=== PATIENT | male | born 2000 | race Caucasian/White ===

== ENCOUNTER 2020-12-15 18:10 | Emergency (ER) | payer OTHER, SELFPAY ==
--- NOTE | ~2020-12-15 | XR_ITS ---
EXAMINATION: XR foot LT min 3V EXAM DATE: 12/15/2020 18:47 INDICATION: Lifted heavy item on 12/06/2020, heard pop MTP region pain persisting. TECHNIQUE: Left foot dorsoplantar, lateral and oblique projections obtained and reviewed. There is n o prior study for comparison. FINDINGS: Left metatarsal bones unremarkable. There are no acute fractures or dislocations identifi ed. There is no subcutaneous gas. The soft tissue is unremarkable. There are no radiopaque foreig n bodies. IMPRESSION: No acute osseous findings. Reviewed, dictated and finalized at location A. IMPRESSION: No acute osseous findings.
[2020-12-15 18:20] VITALS: BP 131/82; PULSE 79; RESP 16; TEMP 37.3; O2SAT 100
--- NOTE | 2020-12-15 19:16 | ED.LOWEXIN ---
HPI - Extremity Injury (Lower) General Chief Complaint: Extremity Injury, Lower Stated Complaint: Fell at work possible injury to left Foot Time Seen by Provider: 12/15/20 18:30 Source: patient and RN notes reviewed Mode of arrival: ambulatory Limitations: no limitations History of Present Illness HPI Narrative: Patient presents today complaining of pain to the dorsum of his left foot since December 06. 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 Patient continues to have sharp pains at the base of his toes since the initial onset of pain. He has numbness at the base of the first and second toes as well. He currently rates his pain 7/10. He has tried no [id number] interventions for pain prior to arrival. States pain is only present with weightbearing. He has been walking on the lateral portion of his foot as this helps with his pain. Related Data Home Medications Medication Instructions Recorded Confirmed No Home Medications 12/15/20 12/15/20 Allergies Allergy/AdvReac Type Severity Reaction Status Date / Time shellfish derived Allergy Unknown Verified 12/15/20 18:28 Review of Systems Review of Systems: Narrative: CONSTITUTIONAL: Denies body aches, fever, chills, or sweats. EYES: Denies visual changes, redness, or discharge. ENT: Denies rhinorrhea, congestion, sore throat, or otalgia. CARDIOVASCULAR: Denies chest pain, palpitations, or edema. RESPIRATORY: Denies cough or dyspnea. GASTROINTESTINAL: Denies abdominal pain, nausea, vomiting, or diarrhea. GENITOURINARY: Denies dysuria or hematuria. SKIN: Denies rash, itching, or wounds. MUSCULOSKELETAL: Denies back pain,or myalgia. + Left foot pain NEUROLOGIC: Denies headache, tingling, or weakness. + Numbness in the left toes PSYCH: Denies depression or anxiety. [facility] Social History Social History Gender identity (if verbalized by the patient): Male Comments At time of signature, I have reviewed and agree with nursing past medical, surgical, social and family history unless otherwise noted. Please see nursing chart for further information. There is no relevant family history pertinent to the presenting complaint Exam Narrative: Exam Narrative: GENERAL: Well-appearing, well-nourished, and in no acute distress. HEAD: Normocephalic, atraumatic. EYES: EOMI. No redness or drainage. Conjunctivae normal. ENT: Mucous membranes pink and moist. NECK: Normal AROM. CHEST: No respiratory distress. EXTREMITIES: Left foot: Foot and toes are nontender. Patient has numbness along the dorsum of the first and second toes but has sensation on the plantar aspect of the toes. Patient states he only has pain with full weightbearing. Capillary refill normal. Pedal pulses normal. Full range of motion of all toes without pain. Color normal. SKIN: Warm, dry, no rash. Capillary refill normal. Normal skin turgor. NEURO: No focal deficits. Alert and oriented x3. Gait steady. PSYCH: Normal affect. No signs of depression or anxiety. Course Course Emergency Course: Patient declines postop shoe. Vital Signs Vital signs: Vital Signs Temperature 99.1 F 12/15/20 18:20 Pulse Rate 79 12/15/20 18:20 Respiratory Rate 16 12/15/20 18:20 Blood Pressure 131/82 12/15/20 18:20 Pulse Oximetry 100 12/15/20 18:20 Temperature 99.1 F 12/15/20 18:20 Pulse Rate 79 12/15/20 18:20 Respiratory Rate 16 12/15/20 18:20 Blood Pressure 131/82 12/15/20 18:20 Pulse Oximetry 100 12/15/20 18:20 Reviewed. Pt has been instructed to follow up with his PCP regarding his elevated blood pressure today. MDM - Extremity Injury (Lower) Differential Diagnosis Differential diagnosis: Likely other (Foot sprain, toe sprain, Espinoza's neuroma, neuropathy) Imaging Data Radiologist's impression: I
== END 2020-12-15 19:26 | disposition home or self-care (01) ==
PROVIDERS: Emergency Provider Nurse Practitioner
DX: S99.922A Unspecified injury of left foot, initial encounter (principal); X50.0XXA Overexertion from strenuous movement or load, initial encounter
CPT/HCPCS: 73630; 99212; G0463